=== PATIENT | female | born 1945 | race Caucasian/White ===

== ENCOUNTER 2017-05-22 21:05 | Emergency (ER) | payer MEDICARE, OTHER ==
[2017-05-22] MEDS ORDERED: TRANEXAMIC ACID 1,000 MG/10 ML VIAL NAS STA (21:52)
[2017-05-22] MEDS ORDERED: OXYMETAZOLINE NASAL SPRAY NAS STA (21:52)
[2017-05-22] MEDS ORDERED: BACITRACIN OINT TOP STA (22:25)
--- NOTE | 2017-05-22 22:45 | ED Physician Documentation ---
PD HPI HEENT - Stated complaint Stated Complaint: NOSE BLEED X2 HRS - Chief complaint Chief Complaint: Heent - History obtained from History obtained from: Patient - History of Present Illness Timing - onset: How many hours ago (2), Today Timing - details: Abrupt onset Location: Nose Similar symptoms before: Has not had sx before Recently seen: Not recently seen - Additional information Additional information: Patient is a 71 year old female with no significant past medical history who is presenting to the emergency department for two hours of epistaxis. patient states that she normally takes an aspirin everyday but due to her cough she has not been taking it. Review of Systems Constitutional: denies: Fever, Chills Eyes: reports: Reviewed and negative Ears: reports: Reviewed and negative Nose: reports: Epistaxis Throat: reports: Reviewed and negative Cardiac: denies: Chest pain / pressure Respiratory: reports: Cough, Wheezing GI: denies: Nausea, Vomiting : reports: Reviewed and negative Skin: reports: Reviewed and negative Musculoskeletal: reports: Reviewed and negative Neurologic: denies: Generalized weakness, Near syncope, Syncope Psychiatric: reports: Anxiety Immunocompromised: denies: Immunocompromised PD PAST MEDICAL HISTORY - Past Medical History GI: GERD : Other HEENT: Glaucoma - Past Surgical History Past Surgical History: Yes - Present Medications Home Medications: Ambulatory Orders Medication Instructions Recorded Confirmed Aspirin [Aspir 81] 1 tab PO DAILY 09/03/14 09/03/14 Latanoprost 0.005% Ophth Drops 09/03/14 09/03/14 [Xalatan Ophth Drops] Omeprazole 20 mg PO DAILY 09/03/14 09/03/14 - Allergies Allergies/Adverse Reactions: Allergies Allergy/AdvReac Type Severity Reaction Status Date / Time No Known Drug Allergies Allergy Verified 05/22/17 21:13 - Social History Does the pt smoke?: No Smoking Status: Never smoker Does the pt drink ETOH?: Yes Does the pt have substance abuse?: No - Immunizations Immunizations are current?: Yes - POLST Patient has POLST: Yes PD ED PE NORMAL - Vitals Vital signs reviewed: Yes - General General: Alert and oriented X 3, No acute distress - Cardiac Cardiac: RRR, No murmur - Derm Derm: Normal color, No rash - Extremities Extremities: No deformity - Neuro Neuro: Alert and oriented X 3, No motor deficit, No sensory deficit, Normal speech PD ED PE EXPANDED - General General: Alert, Anxious - HEENT HEENT: Left nares epistaxis (anterior mild bleeding appreciated), Other (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 Patient's nares were cleaned out and afrin was applied, as well as pressure. Patient's nose bleed resolved. some bacitracin was also placed in the nares. Patient required no further work up and was stable for discharge with outpatient follow up. Departure - Departure Disposition: 01 Home, Self Care Clinical Impression: Epistaxis not due to trauma Condition: Good Instructions: ED Nosebleed Follow-Up: Richa Hernandez PA-C [Primary Care Provider] - As Needed Comments: Your symptoms today are being caused by an anterior nose bleed. It has stopped now, but it may start again. If it does start again you can use the afrin and apply pressure. You may return to the emergency department at any time if necessary for new, worsening or uncontrollable symptoms.
[2017-05-22 22:56] VITALS: BP 129/77
== END 2017-05-22 22:56 | disposition home or self-care (01) ==
LOC: ED 21:05
DX: R04.0 Epistaxis (principal)
CPT/HCPCS: 99282; 99283; A9270

== ENCOUNTER 2017-08-19 11:48 | Outpatient (CLI) | payer MEDICARE, OTHER ==
[2017-08-19] MEDS ORDERED: IOPAMIDOL-300 50 ML VIAL ONE (12:18)
[2017-08-19] MEDS ORDERED: IOPAMIDOL-300 100 ML VIAL ONE (12:18)
[2017-08-19 12:34] LABS: BASOPHILS # (AUTO) 0.1 10^3/uL (0.0-0.1); BASOPHILS % (AUTO) 0.8 %; EOSINOPHILS # (AUTO) 0.5 10^3/uL (0.0-0.7); EOSINOPHILS % (AUTO) 7.8 %; HGB - HEMOGLOBIN 13.6 g/dL (12.0-16.0); LYMPHOCYTES # (AUTO) 1.9 10^3/uL (1.5-3.5); MONOCYTES # (AUTO) 0.5 10^3/uL (0.0-1.0); NEUTROPHILS # (AUTO) 3.7 10^3/uL (1.5-6.6); WHITE BLOOD COUNT 6.7 x10^3/uL (4.8-10.8)
[2017-08-19 12:44] LABS: LYMPHOCYTES % (AUTO) 27.8 %; MEAN CORPUSCULAR HEMOGLOBIN 30.6 pg (27.0-31.0); MEAN CORPUSCULAR HGB CONC 33.3 g/dL (32.0-36.0); MEAN PLATELET VOLUME 8.4 fL (7.9-10.8); MONOCYTES % (AUTO) 8.2 %; NEUTROPHILS % (AUTO) 55.4 %; PLT - PLATELET COUNT 411 10^3/uL (130-450); RED BLOOD COUNT 4.43 10^6/uL (4.20-5.40); RED CELL DISTRIBUTION WIDTH 14.4 % (12.0-15.0)
[2017-08-19 12:52] LABS: ALBUMIN 3.2 g/dL (3.2-5.5); ALBUMIN/GLOBULIN RATIO 0.8 (1.0-2.2); BILIRUBIN,TOTAL 0.5 mg/dL (0.2-1.0); CALCIUM 9.2 mg/dL (8.5-10.3); CREATININE 0.6 mg/dL (0.4-1.0); CRP - C-REACTIVE PROTEIN 11.1 mg/dL (0-1.0); TOTAL PROTEIN 7.1 g/dL (6.7-8.2)
[2017-08-19] MEDS ORDERED: IOPAMIDOL-300 50 ML VIAL PO ONE (13:35)
[2017-08-19] MEDS ORDERED: IOPAMIDOL-300 100 ML VIAL IVP ONE (13:35)
--- NOTE | 2017-08-19 13:48 | CT Report ---
CT ABDOMEN AND PELVIS WITH CONTRAST: 08/19/2017 CLINICAL INDICATION: Abdominal pain. TECHNIQUE: Axial CT images of the abdomen and pelvis were obtained with 100 mL Isovue 300 intravenously as well as oral contrast. COMPARISON: No previous CT is available for comparison. FINDINGS: Limited evaluation of the lung bases demonstrates minimal atelectasis. ABDOMEN: An incidental calcification is noted at the dome of the liver. The spleen, pancreas, left kidney and adrenal glands appear unremarkable. The right kidney demonstrates a small focus of cortical scarring and dystrophic calcification, likely related to previous infection. The gallbladder is not dilated. There is an abnormal fluid collection, with surrounding inflammation, just medial to the cecum, measuring 5.3 x 4.3 x 3.6 cm, compatible with an appendiceal abscess. No normal appendix is appreciated in the region. No free intraperitoneal gas is identified. PELVIS: Colonic diverticula are present, without CT evidence of diverticulitis. The pelvic organs appear unremarkable. No pelvic adenopathy or free fluid is appreciated. Osseous structures demonstrate degenerative changes and levoscoliosis of the lumbar spine. IMPRESSION: ABNORMAL INFLAMMATORY COLLECTION MEDIAL TO THE CECUM, WITHOUT A NORMAL APPENDIX VISUALIZED, COMPATIBLE WITH APPENDICEAL ABSCESS. NO EVIDENCE OF FREE AIR. CRITICAL RESULT: Results called to Richa Hernandez PA-C on 08/19/[address] DOSE REDUCTION STATEMENT In accordance with CT protocol optimization, one or more of the following dose reduction techniques were utilized for this exam: automated exposure control, adjustment of mA and/or KV based on patient size, or use of iterative reconstructive technique. TD: 08/19/2017 13:47
[2017-08-19] MEDS ORDERED: BUPIVACAINE 0.25%-EPI 1:200000 PF 30 ML VIAL ONE (16:34)
[2017-08-19] MEDS ORDERED: BUPIVACAINE 0.5%-EPI 1:200000 PF 30 ML VIAL ONE (17:34)
[2017-08-19] MEDS ORDERED: MORPHINE PCA 50 MG IV ONE (18:21)
== END 2017-08-19 11:49 | disposition home or self-care (01) ==
LOC: LAB 11:48
PROVIDERS: ATTEND Physician Assistant Medical
DX: R93.5 Abnormal findings on diagnostic imaging of other abdominal regions, including retroperitoneum (principal)
CPT/HCPCS: 36415; 74177; 80053; 83690; 85025; 85651; 86140; Q9967

== ENCOUNTER 2017-08-19 13:34 | Inpatient (IN) | payer MEDICARE, OTHER ==
--- NOTE | 2017-08-19 13:47 | ED Physician Documentation ---
PD HPI ABD PAIN - Stated complaint Stated Complaint: RLQ PX - History obtained from History obtained from: Patient - History of Present Illness Timing - onset: How many weeks ago (2) Timing - duration: Weeks (2) Timing - details: Gradual onset, Waxing and waning Pain level max: 10 Pain level now: 5 Quality: Cramping, Aching, Pain Location: All over / everywhere Improved by: Laying still Worsened by: Moving - Additional information Additional information: Patient is a 71-year-old female who presents to the emergency department with right-sided abdominal pain for the past 2 weeks. Has had some nausea and vomiting as well as some diarrhea. Also has had abdominal cramping. No fevers. Was seen by her primary care provider today and had outpatient laboratory testing done as well as an outpatient CT which revealed a possible appendiceal abscess. Sent here for evaluation. Review of Systems Ten Systems: 10 systems reviewed and negative Constitutional: denies: Fever, Chills Ears: denies: Ear pain Nose: denies: Rhinorrhea / runny nose, Congestion Throat: denies: Sore throat Cardiac: denies: Chest pain / pressure Respiratory: denies: Cough, Wheezing GI: denies: Nausea, Vomiting, Diarrhea Skin: denies: Rash Musculoskeletal: denies: Neck pain, Back pain Neurologic: denies: Headache PD PAST MEDICAL HISTORY - Past Medical History Past Medical History: Yes GI: GERD : Other HEENT: Glaucoma - Past Surgical History Past Surgical History: Yes - Present Medications Home Medications: Ambulatory Orders Medication Instructions Recorded Confirmed Aspirin [Aspir 81] 1 tab PO DAILY 09/03/14 09/03/14 Latanoprost 0.005% Ophth Drops 09/03/14 09/03/14 [Xalatan Ophth Drops] Omeprazole 20 mg PO DAILY 09/03/14 09/03/14 - Allergies Allergies/Adverse Reactions: Allergies Allergy/AdvReac Type Severity Reaction Status Date / Time No Known Drug Allergies Allergy Verified 08/19/17 13:51 - Social History Does the pt smoke?: No Smoking Status: Never smoker Does the pt drink ETOH?: Yes Does the pt have substance abuse?: No - Immunizations Immunizations are current?: Yes - POLST Patient has POLST: Yes PD ED PE NORMAL - Vitals Vital signs reviewed: Yes - General General: Alert and oriented X 3, No acute distress - HEENT HEENT: Moist mucous membranes - Neck Neck: Supple, no meningeal sign - Cardiac Cardiac: RRR - Respiratory Respiratory: No respiratory distress, Clear bilaterally - Abdomen Abdomen: Soft, Non tender, Other (Mild diffuse tenderness to palpation without peritoneal signs) - Back Back: No CVA TTP, No spinal TTP - Derm Derm: Warm and dry - Neuro Neuro: Alert and oriented X 3 - Psych Psych: Normal mood, Normal affect Results - Vitals Vitals: Vital Signs - 24 hr 08/19/17 08/19/17 13:47 17:57 Temperature 36.0 C L Heart Rate 73 Respiratory 18 Rate Blood Pressure 130/56 L O2 Saturation 100 100 Oxygen O2 Source Room air - Labs Labs: Microbiology 08/19/17 17:25 Body Fluid Culture - Preliminary Peritoneal Fluid Laboratory Tests 08/19/17 13:45 Urine Color YELLOW Urine Clarity CLEAR Urine pH 6.0 Ur Specific Campo <=1.005 Urine Protein NEGATIVE Urine Glucose (UA) NEGATIVE Urine Ketones NEGATIVE Urine Occult Blood NEGATIVE Urine Nitrite NEGATIVE Urine Bilirubin NEGATIVE Urine Urobilinogen 0.2 (NORMAL) Ur Leukocyte Esterase NEGATIVE Ur Microscopic Review NOT INDICATED Urine Culture Comments NOT INDICATED PD MEDICAL DECISION MAKING - ED course Complexity details: reviewed old records, reviewed results, re-evaluated patient , considered differential, d/w patient, d/w family, d/w data virtualization consultant ED course: Patient is a 71-year-old female who presents to the emergency department with abdominal pain. Outpatient CT revealed an abnormal inflammatory collection medial to the cecum without a normal appendix visualized, compatible with appendiceal abscess. No evidence of free air. The measurement is 5.3 x 4.3 x 3.6 cm. Her outpatient laboratory values were essentially normal. White blood cell count of 6.7. Given IV fluids as well as Zosyn and Flagyl here. Surgery consulted, Dr. Lizandro Khan at 1415. Dr. Khan came and evaluated the patient, feels that she would be better served by interventional radiology performing percutaneous drainage. I then consulted [facility] in [place] for transfer. Interventional radiology reviewed the images and do not feel that there is a window to place a percutaneous drainage. They recommend surgery. I reconsulted Dr. Khan at 1600 and he will come and reevaluate the patient. Dr. Khan will take the patient to the OR. Departure - Departure Disposition: ED Transfer to [facility] Clinical Impression: Acute appendicitis with appendiceal abscess Condition: Stable Discharge Date/Time: 08/19/17 16:45
[2017-08-19] MEDS ORDERED: PIPERACILLIN/TAZOBACTAM 3.375 GM in SODIUM CHLORIDE 0.9% MINIBAG 100 ML IV STA (13:52)
[2017-08-19] MEDS ORDERED: metroNIDAZOLE 500 MG/100 ML 500 MG/100 ML BAG IV ONE (13:52)
[2017-08-19] MEDS: SODIUM CHLORIDE 0.9% 1,000 ML IV ONE ×2 (14:04→19:02)
[2017-08-19] MEDS ORDERED: MORPHINE 2 MG/ML SYRINGE IVP STA (14:06)
[2017-08-19 14:13] LABS: BILIRUBIN,URINE NEGATIVE (NEGATIVE); GLUCOSE, URINE (UA) NEGATIVE (NEGATIVE); KETONES,URINE (UA) NEGATIVE (NEGATIVE); LEUKOCYTE ESTERASE, URINE NEGATIVE (NEGATIVE); NITRITE,URINE NEGATIVE (NEGATIVE); OCCULT BLOOD,URINE NEGATIVE (NEGATIVE); PROTEIN,URINE NEGATIVE (NEGATIVE); UROBILINOGEN,URINE 0.2 (NORMAL) E.U./dL (NORMAL)
[2017-08-19 14:14] LABS: CLARITY,URINE CLEAR (CLEAR)
--- NOTE | 2017-08-19 16:24 | CONSULTATION NOTE ---
Referring Provider Name of Referring Provider:: Dr. Olivas Consult Date: 08/19/17 Chief Complaint - Chief Complaint Chief Complaint: RLQ abdominal pain History of Present Illness - Admitted From Admitted From:: ER - History Obtained From Records Reviewed: yes History obtained from: pt Exam Limitations: none - History of Present Illness HPI Comment/Other: 71 yo female with 2 week hx of crampy periumbilical pain associated with a constant RLQ pressure type of pain. Sx began after several days of N/V and nonbloody diarrhea thought due to food poisoning. She has noted chills but no fever. The symptoms have worsened over the past few day with exacerbation following meals. She has switched to a liquid diet with some improvement. She has been passing flatus and small amount of stool. No melena, BRBPR; no prior simlar sx. She has never had a colonoscopy. Neg FH GI tumors. She saw her PCP who ordered labs and an ABD/Pelvic CT scan, which showed a 5 x 4 x 4 cm complex fluid collection in the RLQ medial to the cecum consistent with an abscess. The appendix could not be visualized. Diverticulosis was also noted. Surgical consultation was requested. She has noted a 10# wt loss since onset of sx. History - Past Medical History Cardiovascular: reports: None Respiratory: reports: None Neuro: reports: None Endocrine/Autoimmune: reports: None GI: reports: GERD (sx well controlled with PPI therapy) POSTPARTUM RN: reports: None : reports: None, Other HEENT: reports: Glaucoma Psych: reports: None Musculoskeletal: reports: None Derm: reports: None MRSA Hx?: No - Family & Social History Family History Comment/Other: Neg for GI tumors Living arrangement: At home Living Situation: With spouse/s.o. - Substance History Use: Uses substance without health or social issues: Alcohol (1-2 drinks/night) Abuse: Recurrent use of substance despite neg consequences: NONE Dependence: Experiences withdrawal or developed tolerances: NONE - POLST Patient has POLST: Yes POLST Status: Full Code Meds/Allgy - Home Medications Home Medications: Ambulatory Orders Medication Instructions Recorded Confirmed Aspirin [Aspir 81] 1 tab PO DAILY 09/03/14 09/03/14 Latanoprost 0.005% Ophth Drops 09/03/14 09/03/14 [Xalatan Ophth Drops] Omeprazole 20 mg PO DAILY 09/03/14 09/03/14 - Allergies Allergies/Adverse Reactions: Allergies Allergy/AdvReac Type Severity Reaction Status Date / Time No Known Drug Allergies Allergy Verified 08/19/17 13:51 Review of Systems - Constitutional Constitutional: reports: Chills, Poor appetite, Weight loss - Cardiovascular Cariovascular: denies: Irregular heart rate, Palpitations, Chest pain, Edema, Lightheadedness, Syncope, Exertional dyspnea - Respiratory Respiratory: denies: Cough, Sputum production, Wheezing, SOB at rest - Gastrointestinal Gastrointestinal: reports: Abdominal pain, Abdominal distention, Constipation ( chronic, controlled with MOM prn), Diarrhea, Nausea, Vomiting, Reflux/ heartburn. denies: Rectal bleeding, Black stools, Bloody stools, Jason blood emesis, Coffee grounds emesis - Genitourinary Genitourinary: reports: Flank pain (mild right sided). denies: Dysuria, Frequency, Urgency, Hematuria - Musculoskeletal Musculoskeletal: denies: Muscle aches, Joint pain - Hematologic/Lymphatic Hematologic/Lymphatic: denies: Bruising, Blood clots, Bleeding tendencies - All Other Systems All Other Systems: reports: Reviewed and negative Exam - Vital Signs Reviewed Vital Signs: Yes Vital Signs: Vital Signs x48h Temp Pulse Resp BP Pulse Ox 08/19/17 13:47 36.0 C L 73 18 130/56 L 100 - Physical Exam General Appearance: positive: Alert, Moderate distress Eyes Bilateral: positive: Normal inspection, PERRL, EOMI, Conjunctivae nml, No scleral icterus ENT: positive: ENT inspection nml, No signs of dehydration. negative: Pharynx nml, Pharyngeal erythema Neck: positive: Nml inspection, Thyroid nml, No JVD. negative: Thyromegaly, Lymphadenopathy (R), Lymphadenopathy (L) Respiratory: positive: Chest non-tender, No respiratory distress, Breath sounds nml. negative: Wheezes, Rales, Rhonchi Cardiovascular: positive: Regular rate & rhythm, No murmur, No gallop Abdomen: positive: No organomegaly, Tenderness (RLQ with guarding/rebound; neg Rovsing's, psoas, and obturator signs; no generalized peritoneal signs), Guarding, Rebound, Abnml bowel sounds (hyperactive). negative: No distention ( mild distention), Hepatomegaly, Splenomegaly, Mass Back: positive: CVA tenderness (R) (mild) Skin: positive: Color nml, No rash, Warm, Dry. negative: Cyanosis, Diaphoresis , Pallor, Skin rash Extremities: positive: Non-tender, Nml appearance, No pedal edema. negative: Calf tenderness Neurologic/Psychiatric: positive: Oriented x3, Motor nml, Sensation nml, Mood/ affect nml Conclusion/Plan - Diagnosis Diagnosis: Acute abdomen with intraabdominal abscess; likely due to perforated appendicitis, less likely right sided diverticulitis, neoplasm. - Plan Plan: Initial recommendation was transfer to facility for IR percutaneous drainage, but radiologists at [facility] were contacted and they felt that this abscess was not amenable to percutaneous drainage due to overlying bowel; surgical therapy was recommended; surgeon, Dr. Pulido, at [facility] recommended same and suggested it be done here if possible. Discussed exploratory laparotomy, drainage of abscess, possible appendectomy, possible bowel resection with pt and consent obtained. The surgery will be performed later today. Broad spectrum antibiotics have been initiated. - Lab Results Lab results reviewed: Yes Other Lab Results: WBC nl; ESR and CRP elevated; UA negative; Chemistries OK. - Diagnostic Imaging Results Diagnostic Imaging Results: positive: Final report reviewed, Read independently Diagnostic Imaging Results Comments: See HPI
[2017-08-19] MEDS ORDERED: NEOSTIGMINE 1 MG/1 ML 10 ML MDV IVP ONE (17:30)
[2017-08-19] MEDS ORDERED: ROCURONIUM 50 MG/5 ML VIAL IVP ONE (17:30)
[2017-08-19] MEDS ORDERED: DEXAMETHASONE 4 MG/ML VIAL IVP ONE (17:30)
[2017-08-19] MEDS ORDERED: ONDANSETRON 4 MG/2 ML VIAL IVP ONE (17:30)
[2017-08-19] MEDS ORDERED: ePHEDrine 50 MG/ML VIAL IVP ONE (17:30)
[2017-08-19] MEDS ORDERED: PROPOFOL 200 MG/20 ML VIAL IVP ONE (17:30)
[2017-08-19] MEDS ORDERED: SUCCINYLCHOLINE 200 MG/10 ML VIAL IVP ONE (17:30)
[2017-08-19] MEDS ORDERED: fentaNYL 250 MCG/5 ML VIAL IVP ONE (17:30)
[2017-08-19] MEDS ORDERED: KETOROLAC 30 MG/ML VIAL IVP ONE (17:30)
[2017-08-19] MEDS ORDERED: GLYCOPYRROLATE 1 MG/5 ML VIAL IVP ONE (17:30)
[2017-08-19] MEDS ORDERED: BUPIVACAINE 0.5%-EPI 1:200000 PF 30 ML VIAL SUBQ ONE (17:31)
[2017-08-19] MEDS ORDERED: LACTATED RINGERS 1,000 ML IV ONE ×2 (17:32)
[2017-08-19] MEDS ORDERED: ceFAZolin 1 GM VIAL IR ONE (17:40)
[2017-08-19] MEDS ORDERED: ONDANSETRON 4 MG/2 ML VIAL IVP PRN (17:59)
[2017-08-19] MEDS ORDERED: ACETAMINOPHEN 1,000 MG/100 ML 100 ML IV ONE (18:11)
[2017-08-19] MEDS ORDERED: MORPHINE PCA 50 MG IV PRN (18:15)
[2017-08-19] MEDS ORDERED: HYDROmorphone 0.5 MG/0.5 ML SYRINGE ONE (18:19)
[2017-08-19] MEDS: ACETAMINOPHEN 1,000 MG/100 ML 100 ML IV SCH (19:03)
[2017-08-19] MEDS: PIPERACILLIN/TAZOBACTAM 3.375 GM in SODIUM CHLORIDE 0.9% MINIBAG 100 ML IV SCH (19:25)
[2017-08-19] MEDS: LACTATED RINGERS 1,000 ML IV SCH (19:50)
[2017-08-19] MEDS: PROCHLORPERAZINE 10 MG/2 ML VIAL IVP PRN (20:20)
--- NOTE | 2017-08-19 21:41 | OPERATIVE REPORT ---
DATE OF SERVICE: 08/19/2017 Physician: Lizandro Khan MD PREOPERATIVE DIAGNOSIS: Acute abdomen secondary to intra-abdominal abscess, thought secondary to perforated appendicitis. POSTOPERATIVE DIAGNOSIS: Acute abdomen secondary to intra-abdominal abscess, thought secondary to perforated appendicitis. NAME OF PROCEDURE: Exploratory laparotomy and drainage of intra-abdominal abscess. SURGEON: Lizandro Khan MD ANESTHESIA: General endotracheal. ESTIMATED BLOOD LOSS: Minimal. DRAINS: A #10 flat Mazin-Cifuentes in the abscess cavity. COMPLICATIONS: None. FINDINGS: Exploratory laparotomy revealed an inflammatory mass in the right mid paracolic gutter located posterior to the mid ascending colon approximately 6-7 cm in diameter. The overlying cecum, terminal ileum, remainder of small bowel appeared normal. The left colon was notable for marked diverticular change. Uterus, tubes, and ovaries were normal for age. Liver, stomach, gallbladder appeared normal. Following exploration of the retroperitoneal space behind the right colon, an abscess cavity was entered and purulent material that was foul smelling was drained. Samples of which were sent for Gram stain and culture, aerobic and anaerobic. The appendix could not be identified and was presumed to be destroyed within the abscess and located somewhere within the abscess cavity but could not be identified. There were no gross findings suspicious for neoplasm. There was no free fluid. The omentum appeared normal. INDICATIONS: Patient is a 71-year-old woman with a 2-week history of right lower quadrant abdominal pain. Evaluation included a CT scan of the abdomen and pelvis showing a complex fluid collection medial to the cecum and no visible appendix. Findings thought to represent a large appendiceal abscess. Consultation with Interventional Radiology regarding drainage percutaneously was obtained, and apparently this abscess was not felt amenable to percutaneous drainage. Therefore, patient advised to undergo exploratory laparotomy and open drainage with appendectomy as appropriate. TECHNIQUE: After informed consent, patient was taken to the operating room where she was placed under general endotracheal anesthesia. Preoperative preparation included application of sequential calf compression boots. She had previously been administered a therapeutic dose of Zosyn and metronidazole. Her abdomen was prepared with ChloraPrep solution and draped in usual sterile fashion. Lama catheter and orogastric catheters were inserted. A lower midline incision was made and extended just above the umbilicus. Hemostasis achieved with electrocautery. Incision was carried down through the layers of the abdominal wall until the peritoneum was identified and entered sharply. The abdomen was explored with findings noted above. The right colon was mobilized and the white line of Toldt was incised, exposing the retroperitoneum behind the cecum where the abscess cavity was encountered, entered and was drained. Samples were sent for Gram stain and culture. Search was made for the appendix but could not be identified. It was presumed to be in the wall of the abscess cavity at some point or having been destroyed. After hemostasis had been assured, the abscess cavity and abdominal cavity were copiously irrigated with saline solution containing a gram of cefotetan per liter, following which, a #10 flat Mazin-Cifuentes drain was placed via a stab wound in the right lower quadrant and placed into the abscess cavity. The drain was secured to the skin with a 3-0 nylon suture and connected to bulb suction. The incision was then closed in layers, using continuous 0 Vicryl to reapproximate the peritoneum and posterior rectus sheath below the umbilicus, followed by continuous 0 PDS to reapproximate the midline fascia above the umbilicus and the anterior fascia below. The wound was irrigated with antibiotic solution , following which the skin was loosely closed with jeanmarie and saline wet-to-dry dressings were applied between the jeanmarie. This was followed by dry sterile dressing, and 30 mL of 0.5% Marcaine with epinephrine was infiltrated in the incision to assist in postoperative analgesia. Dry sterile dressings were applied. Anesthesia was terminated. The Lama and orogastric tube were removed. Patient was transferred to the recovery room in satisfactory condition. Sponge and needle counts were correct x2. There were no specimens for pathology. TD: 08/19/2017 21:41 [id number]
[2017-08-19] MEDS ORDERED: SODIUM CHLORIDE 0.9% 500 ML IV SCH (21:43)
[2017-08-19] MEDS ORDERED: SODIUM CHLORIDE 0.9% 1,000 ML IV ONE (21:54)
[2017-08-19] MEDS ORDERED: SODIUM CHLORIDE 0.9% 500 ML IV ONE (22:59)
[2017-08-20] MEDS: ACETAMINOPHEN 1,000 MG/100 ML 100 ML IV SCH ×4 (01:54→18:28)
[2017-08-20] MEDS: PIPERACILLIN/TAZOBACTAM 3.375 GM in SODIUM CHLORIDE 0.9% MINIBAG 100 ML IV SCH ×4 (01:55→18:51)
[2017-08-20] MEDS: KETOROLAC 15 MG/ML VIAL IVP SCH ×4 (01:55→18:37)
[2017-08-20] MEDS: SODIUM CHLORIDE FLUSH 0.9% 10 ML SYRINGE IVP SCH ×3 (01:55→18:36)
[2017-08-20 04:36] LABS: BASOPHILS % (AUTO) 0.2 %; HGB - HEMOGLOBIN 12.9 g/dL (12.0-16.0); LYMPHOCYTES # (AUTO) 0.9 10^3/uL (1.5-3.5); LYMPHOCYTES % (AUTO) 6.1 %; MEAN CORPUSCULAR HEMOGLOBIN 29.4 pg (27.0-31.0); MEAN CORPUSCULAR HGB CONC 31.4 g/dL (32.0-36.0); MEAN CORPUSCULAR VOLUME 93.8 fL (81.0-99.0); MEAN PLATELET VOLUME 8.5 fL (7.9-10.8); MONOCYTES # (AUTO) 0.6 10^3/uL (0.0-1.0); MONOCYTES % (AUTO) 3.8 %; NEUTROPHILS # (AUTO) 13.8 10^3/uL (1.5-6.6); NEUTROPHILS % (AUTO) 89.9 %; PLT - PLATELET COUNT 402 10^3/uL (130-450); RED BLOOD COUNT 4.38 10^6/uL (4.20-5.40); RED CELL DISTRIBUTION WIDTH 14.8 % (12.0-15.0); WHITE BLOOD COUNT 15.4 x10^3/uL (4.8-10.8)
[2017-08-20 04:50] LABS: ALBUMIN 2.6 g/dL (3.2-5.5); ALBUMIN/GLOBULIN RATIO 0.8 (1.0-2.2); BILIRUBIN,TOTAL 0.6 mg/dL (0.2-1.0); CREATININE 0.6 mg/dL (0.4-1.0); TOTAL PROTEIN 5.8 g/dL (6.7-8.2)
[2017-08-20] MEDS: LACTATED RINGERS 1,000 ML IV SCH ×2 (06:50→18:33)
[2017-08-20] MEDS: SODIUM CHLORIDE FLUSH 0.9% 10 ML SYRINGE IVP PRN ×4 (06:56→19:12)
[2017-08-20] MEDS ORDERED: PANTOPRAZOLE 40 MG TABLET PO SCH (07:00)
[2017-08-20] MEDS: ENOXAPARIN 40 MG/0.4 ML SYRINGE SUBQ SCH (08:19)
[2017-08-20] MEDS ORDERED: LATANOPROST 0.005% EACHEYE SCH (09:00)
[2017-08-20] MEDS: RESTASIS EACHEYE SCH ×2 (09:40→21:38)
[2017-08-20] MEDS: COMBIGAN EACHEYE SCH ×2 (09:40→21:32)
[2017-08-20] MEDS: PROCHLORPERAZINE 10 MG/2 ML VIAL IVP PRN (11:20)
--- NOTE | 2017-08-20 16:46 | PROVIDER PROGRESS NOTE ---
Subjective - General Admit Date: 08/19/17 Procedure Date: 08/19/17 Post Op Days: 1 Procedure Performed: Ex lap, drainage of retroperitoneal appendiceal abscess - Review of Systems Wound/Incisions: positive: Dressing dry and intact, No drainage Drain Type: J/P Drain Output Description: serosanguinous Approximate mls Output: 80 cc/8 hours General: positive: No symptoms Pulmonary: positive: No symptoms Cardiovascular: positive: No symptoms Gastrointestinal: positive: Nausea, Vomiting, Abdominal pain Genitourinary: positive: No symptoms Musculoskeletal: positive: No symptoms Skin: positive: No symptoms Psychiatric: positive: No symptoms Objective - Patient Data Reviewed Vital Signs: Yes Vital Signs: Vital Signs x48h Temp Pulse Resp BP Pulse Ox 08/20/17 15:38 36.8 C 70 12 122/47 L 96 08/20/17 10:00 12 Weight: Weight 08/18/17 08/19/17 08/20/17 23:59 23:59 23:59 Weight (kg) 68.946 kg Intake & Output: Intake and Output Totals x24h 08/18/17 08/19/17 08/20/17 23:59 23:59 23:59 Intake Total 2367.5 1875 Output Total 110 510 Balance 2257.5 1365 - Lab Results Lab Results: 08/20/17 04:02 08/20/17 04:02 Other Lab Results: Lab Results x24hrs 08/20/17 08/20/17 Range/Units 04:02 04:02 WBC 15.4 H (4.8-10.8) x10^3/uL RBC 4.38 (4.20-5.40) 10^6/uL Hgb 12.9 (12.0-16.0) g/dL Hct 41.1 (37.0-47.0) % MCV 93.8 (81.0-99.0) fL MCH 29.4 (27.0-31.0) pg MCHC 31.4 L (32.0-36.0) g/dL RDW 14.8 (12.0-15.0) % Plt Count 402 (130-450) 10^3/uL MPV 8.5 (7.9-10.8) fL Neut # 13.8 H (1.5-6.6) 10^3/uL Lymph # 0.9 L (1.5-3.5) 10^3/uL [place] # 0.6 (0.0-1.0) 10^3/uL Eos # 0.0 (0.0-0.7) 10^3/uL Baso # 0.0 (0.0-0.1) 10^3/uL Absolute Nucleated RBC 0.01 x10^3/uL Nucleated RBC % 0.0 /100WBC Sodium 135 (135-145) mmol/L Potassium 4.4 (3.5-5.0) mmol/L Chloride 105 (101-111) mmol/L Carbon Dioxide 23 (21-32) mmol/L Anion Gap 7.0 (6-13) BUN 14 (6-20) mg/dL Creatinine 0.6 (0.4-1.0) mg/dL Estimated GFR (MDRD) 98 (>89) Glucose 140 H (70-100) mg/dL Calcium 8.0 L (8.5-10.3) mg/dL Total Bilirubin 0.6 (0.2-1.0) mg/dL AST 24 (10-42) IU/L ALT 29 (10-60) IU/L Alkaline Phosphatase 60 (42-121) IU/L Total Protein 5.8 L (6.7-8.2) g/dL Albumin 2.6 L (3.2-5.5) g/dL Globulin 3.2 (2.1-4.2) g/dL Albumin/Globulin Ratio 0.8 L (1.0-2.2) - Current Medications Current Medications: Current Medications Generic Name Dose Route Start Last Admin Trade Name Norbertq PRN Reason Stop Dose Admin Enoxaparin Sodium 40 mg 08/20/17 08:00 08/20/17 08:19 Lovenox SUBQ 40 mg DAILY TESSA Administration Lactated Ringer's 1,000 mls @ 100 mls/hr 08/19/17 18:00 08/20/17 06:50 Lr IV 100 mls/hr .Q10H TESSA Administration Acetaminophen 100 mls @ 400 mls/hr 08/19/17 18:00 08/20/17 13:25 Ofirmev IV Infused Q6H TESSA Infusion Piperacillin Sod/Tazobactam 100 mls @ 200 mls/hr 08/19/17 18:00 08/20/17 13: 40 Sod 3.375 gm/ Sodium Chloride IV Infused Q6HR TESSA Infusion Ketorolac Tromethamine 15 mg 08/19/17 23:55 08/20/17 12:40 Toradol Inj IVP 08/24/17 23:54 15 mg Q6H TESSA Administration Morphine Sulfate/Sodium Chloride 0 mg 08/19/17 18:15 08/19/17 19:11 Morphine Industrial Rehabilitation Consultant (Use Industrial Rehabilitation Consultant Order Set) IV 50 mg J[employer] LEAD ENGINEER PRN Administration PAIN Protocol Ondansetron HCl 4 mg 08/19/17 17:59 08/19/17 19:21 Zofran Inj IVP 4 mg Q6H PRN Administration Nausea / Vomiting Pantoprazole Sodium 40 mg 08/20/17 07:00 08/20/17 06:50 Protonix PO 40 mg QDAC TESSA Administration Combigan 0.2%/0.5% 1 each 08/20/17 09:00 08/20/17 09:40 EACHEYE 1 each BID TESSA Administration Restasis 0.5% 1 each 08/20/17 09:00 08/20/17 09:40 EACHEYE 1 each BID TESSA Administration Prochlorperazine Edisylate 10 mg 08/19/17 20:10 08/20/17 11:20 Compazine Inj IVP 10 mg Q4HR PRN Administration Nausea / Vomiting Sodium Chloride 10 ml 08/20/17 01:00 08/20/17 08:11 Normal Saline Flush 0.9% IVP 10 ml 0100,0900,1700 TESSA Administration Sodium Chloride 10 ml 08/19/17 17:59 08/20/17 11:20 Normal Saline Flush 0.9% IVP 10 ml PRN PRN Administration NEEDED PER PROVIDER ORDERS - Physical Exam Wound/Incisions: positive: Dressing dry and intact, No drainage General Appearance: positive: No acute distress Eyes Bilateral: positive: Normal inspection, Conjunctivae nml, No scleral icterus ENT: positive: Pharynx nml, No signs of dehydration Neck: positive: No JVD Respiratory: positive: Chest non-tender, No respiratory distress, Breath sounds nml Cardiovascular: positive: Regular rate & rhythm, No murmur, No gallop Abdomen: positive: Tenderness (incisional; less tender in RLQ than preop), Abnml bowel sounds (hypoactive). negative: Guarding Skin: positive: Color nml, No rash, Warm, Dry. negative: Cyanosis Extremities: positive: No pedal edema. negative: Luana's sign/cords Neurologic/Psychiatric: positive: Oriented x3 Impression/Plan - Problem List Problem List: PO Day 1 s/p ex lap and drainage of appendiceal abscess; doing well overall. Some PONV persists, but is improving. Plan: OOB, pulmonary toilet, ow continue present management.
[2017-08-20] MEDS: PANTOPRAZOLE 40 MG VIAL IVP SCH (19:12)
[2017-08-20] MEDS: LATANOPROST 0.005% EACHEYE SCH (21:45)
[2017-08-21] MEDS: KETOROLAC 15 MG/ML VIAL IVP SCH ×4 (00:15→17:38)
[2017-08-21] MEDS: ACETAMINOPHEN 1,000 MG/100 ML 100 ML IV SCH ×4 (00:20→18:04)
[2017-08-21] MEDS: SODIUM CHLORIDE FLUSH 0.9% 10 ML SYRINGE IVP SCH ×3 (00:34→11:50)
[2017-08-21] MEDS: PIPERACILLIN/TAZOBACTAM 3.375 GM in SODIUM CHLORIDE 0.9% MINIBAG 100 ML IV SCH ×4 (00:41→18:33)
[2017-08-21] MEDS: LACTATED RINGERS 1,000 ML IV SCH (04:45)
[2017-08-21 05:29] LABS: BASOPHILS % (AUTO) 0.3 %; EOSINOPHILS # (AUTO) 0.3 10^3/uL (0.0-0.7); EOSINOPHILS % (AUTO) 2.2 %; HGB - HEMOGLOBIN 12.2 g/dL (12.0-16.0); LYMPHOCYTES # (AUTO) 1.9 10^3/uL (1.5-3.5); LYMPHOCYTES % (AUTO) 13.9 %; MEAN CORPUSCULAR HEMOGLOBIN 29.6 pg (27.0-31.0); MEAN CORPUSCULAR HGB CONC 32.4 g/dL (32.0-36.0); MEAN CORPUSCULAR VOLUME 91.4 fL (81.0-99.0); MEAN PLATELET VOLUME 8.6 fL (7.9-10.8); MONOCYTES # (AUTO) 0.6 10^3/uL (0.0-1.0); MONOCYTES % (AUTO) 4.7 %; NEUTROPHILS # (AUTO) 10.6 10^3/uL (1.5-6.6); NEUTROPHILS % (AUTO) 78.9 %; PLT - PLATELET COUNT 413 10^3/uL (130-450); RED BLOOD COUNT 4.11 10^6/uL (4.20-5.40); RED CELL DISTRIBUTION WIDTH 14.4 % (12.0-15.0); WHITE BLOOD COUNT 13.4 x10^3/uL (4.8-10.8)
[2017-08-21 05:41] LABS: CALCIUM 8.2 mg/dL (8.5-10.3); CREATININE 0.6 mg/dL (0.4-1.0)
[2017-08-21] MEDS: PANTOPRAZOLE 40 MG VIAL IVP SCH (06:37)
[2017-08-21] MEDS: SODIUM CHLORIDE FLUSH 0.9% 10 ML SYRINGE IVP PRN (06:37)
--- NOTE | 2017-08-21 08:21 | PROVIDER PROGRESS NOTE ---
Subjective - General Admit Date: 08/19/17 Procedure Date: 08/19/17 (Day 2 Zosyn) Post Op Days: 2 Procedure Performed: Ex lap, drainage of retroperitoneal appendiceal abscess - Review of Systems Wound/Incisions: positive: Dressing dry and intact, No drainage Drain Type: J/P Drain Output Description: serosanguinous Approximate mls Output: 20 cc/8 hours General: positive: No symptoms Pulmonary: positive: No symptoms Cardiovascular: positive: No symptoms Gastrointestinal: positive: Nausea, Abdominal pain (well controlled with non narcotic analgesics), Flatus Genitourinary: positive: No symptoms Musculoskeletal: positive: No symptoms Skin: positive: No symptoms Psychiatric: positive: No symptoms - Other Other Information/Narrative: Feels better, no further vomiting since yesterday; minimal nausea, passing flatus, good pain control, starting to ambulate, notes urine output has markedly increased. Objective - Patient Data Reviewed Vital Signs: Yes Vital Signs: Vital Signs x48h Temp Pulse Resp BP BP Pulse Ox 08/21/17 07:29 36.6 C 89 18 134/60 H 93 08/21/17 01:42 14 08/21/17 00:35 36.4 C L 80 18 126/74 96 Weight: Weight 08/19/17 08/20/17 08/21/17 23:59 23:59 23:59 Weight (kg) 68.946 kg Intake & Output: Intake and Output Totals x24h 08/19/17 08/20/17 08/21/17 23:59 23:59 23:59 Intake Total 2367.5 3475 1485.917 Output Total 110 1505 1920 Balance 2257.5 1970 -434.083 - Lab Results Lab Results: 08/21/17 04:45 08/21/17 04:45 Other Lab Results: Lab Results x24hrs 08/21/17 08/21/17 Range/Units 04:45 04:45 WBC 13.4 H (4.8-10.8) x10^3/uL RBC 4.11 L (4.20-5.40) 10^6/uL Hgb 12.2 (12.0-16.0) g/dL Hct 37.6 (37.0-47.0) % MCV 91.4 (81.0-99.0) fL MCH 29.6 (27.0-31.0) pg MCHC 32.4 (32.0-36.0) g/dL RDW 14.4 (12.0-15.0) % Plt Count 413 (130-450) 10^3/uL MPV 8.6 (7.9-10.8) fL Neut # 10.6 H (1.5-6.6) 10^3/uL Lymph # 1.9 (1.5-3.5) 10^3/uL [place] # 0.6 (0.0-1.0) 10^3/uL Eos # 0.3 (0.0-0.7) 10^3/uL Baso # 0.0 (0.0-0.1) 10^3/uL Absolute Nucleated RBC 0.00 x10^3/uL Nucleated RBC % 0.0 /100WBC Sodium 137 (135-145) mmol/L Potassium 3.2 L (3.5-5.0) mmol/L Chloride 104 (101-111) mmol/L Carbon Dioxide 26 (21-32) mmol/L Anion Gap 7.0 (6-13) BUN 10 (6-20) mg/dL Creatinine 0.6 (0.4-1.0) mg/dL Estimated GFR (MDRD) 98 (>89) Glucose 89 (70-100) mg/dL Calcium 8.2 L (8.5-10.3) mg/dL peritoneal fluid cultures still pending. - Current Medications Current Medications: Current Medications Generic Name Dose Route Start Last Admin Trade Name Norbertq PRN Reason Stop Dose Admin Enoxaparin Sodium 40 mg 08/20/17 08:00 08/20/17 08:19 Lovenox SUBQ 40 mg DAILY TESSA Administration Acetaminophen 100 mls @ 400 mls/hr 08/19/17 18:00 08/21/17 06:25 Ofirmev IV Infused Q6H TESSA Infusion Piperacillin Sod/Tazobactam 100 mls @ 200 mls/hr 08/19/17 18:00 08/21/17 06: 42 Sod 3.375 gm/ Sodium Chloride IV 200 mls/hr Q6HR TESSA Administration Ketorolac Tromethamine 15 mg 08/19/17 23:55 08/21/17 06:08 Toradol Inj IVP 08/24/17 23:54 15 mg Q6H TESSA Administration Ondansetron HCl 4 mg 08/19/17 17:59 08/19/17 19:21 Zofran Inj IVP 4 mg Q6H PRN Administration Nausea / Vomiting Pantoprazole Sodium 40 mg 08/20/17 18:00 08/21/17 06:37 Protonix IVP 40 mg QDAC TESSA Administration Combigan 0.2%/0.5% 1 each 08/20/17 09:00 08/20/17 21:32 EACHEYE 1 each BID TESSA Administration Restasis 0.5% 1 each 08/20/17 09:00 08/20/17 21:38 EACHEYE 1 each BID TESSA Administration Latanoprost 0.005% 1 each 08/20/17 10:37 08/20/17 21:45 EACHEYE 1 each QPM TESSA Administration Prochlorperazine Edisylate 10 mg 08/19/17 20:10 08/20/17 11:20 Compazine Inj IVP 10 mg Q4HR PRN Administration Nausea / Vomiting Sodium Chloride 10 ml 08/20/17 01:00 08/21/17 00:34 Normal Saline Flush 0.9% IVP 10 ml 0100,0900,1700 TESSA Administration Sodium Chloride 10 ml 08/19/17 17:59 08/21/17 06:37 Normal Saline Flush 0.9% IVP 10 ml PRN PRN Administration NEEDED PER PROVIDER ORDERS - Physical Exam Wound/Incisions: positive: Dressing dry and intact, No drainage General Appearance: positive: No acute distress, Alert Eyes Bilateral: positive: Normal inspection, Conjunctivae nml, No scleral icterus ENT: positive: ENT inspection nml, Pharynx nml, No signs of dehydration Neck: positive: No JVD Respiratory: positive: Chest non-tender, No respiratory distress, Rhonchi ( clear with cough) Cardiovascular: positive: Regular rate & rhythm, No murmur, No gallop Abdomen: positive: Tenderness (mild, expected incisional), Abnml bowel sounds ( hyperactive bowel sounds, no rushes or tympanitic sounds). negative: Guarding, Rebound Skin: positive: Color nml, No rash, Warm, Dry. negative: Cyanosis, Diaphoresis Extremities: positive: Non-tender, No pedal edema. negative: Calf tenderness Neurologic/Psychiatric: positive: Oriented x3 Impression/Plan - Problem List Problem List: PO Day 2 s/p open drainage of appendiceal abscess. Doing well with no fever, decreasing WBC count, increased urine output, good pain control with non narcotic analgesics. PONV appears to be improving as well. She has hypokalemia, possibly due to vomiting, will replace. PLan: replace K, increase activity, clear liq diet as tolerated, ow continue present management.
[2017-08-21] MEDS ORDERED: D5.45NS W/20 MEQ KCL 1,000 ML IV SCH ×3 (09:00→16:41)
[2017-08-21] MEDS: RESTASIS EACHEYE SCH ×2 (09:08→20:46)
[2017-08-21] MEDS: COMBIGAN EACHEYE SCH ×2 (09:08→20:45)
[2017-08-21] MEDS: ENOXAPARIN 40 MG/0.4 ML SYRINGE SUBQ SCH (09:09)
[2017-08-21] MEDS: POTASSIUM CHLORIDE 20 MEQ TABLET PO SCH ×2 (17:58→22:40)
[2017-08-21] MEDS: LATANOPROST 0.005% EACHEYE SCH (20:47)
[2017-08-22] MEDS: ACETAMINOPHEN 1,000 MG/100 ML 100 ML IV SCH ×2 (00:22→05:46)
[2017-08-22] MEDS: KETOROLAC 15 MG/ML VIAL IVP SCH ×2 (00:23→05:45)
[2017-08-22] MEDS: SODIUM CHLORIDE FLUSH 0.9% 10 ML SYRINGE IVP SCH ×4 (00:23→17:41)
[2017-08-22] MEDS: PIPERACILLIN/TAZOBACTAM 3.375 GM in SODIUM CHLORIDE 0.9% MINIBAG 100 ML IV SCH ×4 (00:49→17:09)
[2017-08-22 05:34] LABS: BASOPHILS # (AUTO) 0.1 10^3/uL (0.0-0.1); BASOPHILS % (AUTO) 0.9 %; EOSINOPHILS # (AUTO) 0.4 10^3/uL (0.0-0.7); EOSINOPHILS % (AUTO) 4.6 %; HGB - HEMOGLOBIN 12.9 g/dL (12.0-16.0); LYMPHOCYTES # (AUTO) 1.7 10^3/uL (1.5-3.5); LYMPHOCYTES % (AUTO) 19.3 %; MEAN CORPUSCULAR HEMOGLOBIN 29.8 pg (27.0-31.0); MEAN CORPUSCULAR HGB CONC 32.6 g/dL (32.0-36.0); MEAN CORPUSCULAR VOLUME 91.3 fL (81.0-99.0); MEAN PLATELET VOLUME 8.3 fL (7.9-10.8); MONOCYTES # (AUTO) 0.6 10^3/uL (0.0-1.0); MONOCYTES % (AUTO) 6.8 %; NEUTROPHILS % (AUTO) 68.4 %; PLT - PLATELET COUNT 418 10^3/uL (130-450); RED BLOOD COUNT 4.34 10^6/uL (4.20-5.40); RED CELL DISTRIBUTION WIDTH 14.9 % (12.0-15.0); WHITE BLOOD COUNT 8.7 x10^3/uL (4.8-10.8)
[2017-08-22 05:41] LABS: ALBUMIN 2.7 g/dL (3.2-5.5); ALBUMIN/GLOBULIN RATIO 0.8 (1.0-2.2); BILIRUBIN,TOTAL 0.4 mg/dL (0.2-1.0); CALCIUM 8.3 mg/dL (8.5-10.3); CREATININE 0.5 mg/dL (0.4-1.0)
[2017-08-22] MEDS: SODIUM CHLORIDE FLUSH 0.9% 10 ML SYRINGE IVP PRN (05:45)
[2017-08-22] MEDS: PANTOPRAZOLE 40 MG VIAL IVP SCH (05:45)
[2017-08-22] MEDS: POTASSIUM CHLORIDE 20 MEQ TABLET PO SCH ×2 (05:47→13:38)
[2017-08-22] MEDS: ENOXAPARIN 40 MG/0.4 ML SYRINGE SUBQ SCH (09:36)
[2017-08-22] MEDS: COMBIGAN EACHEYE SCH ×2 (09:57→21:29)
[2017-08-22] MEDS: RESTASIS EACHEYE SCH ×2 (09:58→21:29)
--- NOTE | 2017-08-22 10:27 | PROVIDER PROGRESS NOTE ---
Subjective - General Admit Date: 08/19/17 Procedure Date: 08/19/17 (Day 3 Zosyn) Post Op Days: 3 Procedure Performed: Ex lap, drainage of retroperitoneal appendiceal abscess - Review of Systems Wound/Incisions: positive: Dressing dry and intact, No drainage Drain Type: J/P Drain Output Description: serosanguinous Approximate mls Output: 120 cc/24 hrs General: positive: No symptoms Pulmonary: positive: No symptoms Cardiovascular: positive: No symptoms Gastrointestinal: positive: No symptoms, Abdominal pain (well controlled with non narcotic analgesics), Flatus, Diarrhea (loose stools since last night) Genitourinary: positive: No symptoms Musculoskeletal: positive: No symptoms Skin: positive: No symptoms Psychiatric: positive: No symptoms All Other Systems: positive: Reviewed and negative Objective - Patient Data Reviewed Vital Signs: Yes Vital Signs: afebrile; nl vs Intake & Output: Intake and Output Totals x24h 08/20/17 08/21/17 08/22/17 23:59 23:59 23:59 Intake Total 3475 4267.270 800 Output Total 1505 5765 490 Balance 1970 -1497.730 310 - Lab Results Lab Results: 08/22/17 04:55 08/22/17 04:55 Other Lab Results: Lab Results x24hrs 08/22/17 08/22/17 Range/Units 04:55 04:55 WBC 8.7 (4.8-10.8) x10^3/uL RBC 4.34 (4.20-5.40) 10^6/uL Hgb 12.9 (12.0-16.0) g/dL Hct 39.7 (37.0-47.0) % MCV 91.3 (81.0-99.0) fL MCH 29.8 (27.0-31.0) pg MCHC 32.6 (32.0-36.0) g/dL RDW 14.9 (12.0-15.0) % Plt Count 418 (130-450) 10^3/uL MPV 8.3 (7.9-10.8) fL Neut # 6.0 (1.5-6.6) 10^3/uL Lymph # 1.7 (1.5-3.5) 10^3/uL [place] # 0.6 (0.0-1.0) 10^3/uL Eos # 0.4 (0.0-0.7) 10^3/uL Baso # 0.1 (0.0-0.1) 10^3/uL Absolute Nucleated RBC 0.01 x10^3/uL Nucleated RBC % 0.1 /100WBC Sodium 140 (135-145) mmol/L Potassium 3.1 L (3.5-5.0) mmol/L Chloride 107 (101-111) mmol/L Carbon Dioxide 25 (21-32) mmol/L Anion Gap 8.0 (6-13) BUN 5 L (6-20) mg/dL Creatinine 0.5 (0.4-1.0) mg/dL Estimated GFR (MDRD) 121 (>89) Glucose 99 (70-100) mg/dL Calcium 8.3 L (8.5-10.3) mg/dL Total Bilirubin 0.4 (0.2-1.0) mg/dL AST 17 (10-42) IU/L ALT 19 (10-60) IU/L Alkaline Phosphatase 59 (42-121) IU/L Total Protein 6.0 L (6.7-8.2) g/dL Albumin 2.7 L (3.2-5.5) g/dL Globulin 3.3 (2.1-4.2) g/dL Albumin/Globulin Ratio 0.8 L (1.0-2.2) abscess C&S still pending - Current Medications Current Medications: Current Medications Generic Name Dose Route Start Last Admin Trade Name Freq PRN Reason Stop Dose Admin Enoxaparin Sodium 40 mg 08/20/17 08:00 08/22/17 09:36 Lovenox SUBQ 40 mg DAILY TESSA Administration Piperacillin Sod/Tazobactam 100 mls @ 200 mls/hr 08/19/17 18:00 08/22/17 06: 56 Sod 3.375 gm/ Sodium Chloride IV Infused Q6HR TESSA Infusion Ondansetron HCl 4 mg 08/19/17 17:59 08/19/17 19:21 Zofran Inj IVP 4 mg Q6H PRN Administration Nausea / Vomiting Combigan 0.2%/0.5% 1 each 08/20/17 09:00 08/22/17 09:57 EACHEYE 1 each BID TESSA Administration Restasis 0.5% 1 each 08/20/17 09:00 08/22/17 09:58 EACHEYE 1 each BID TESSA Administration Latanoprost 0.005% 1 each 08/20/17 10:37 08/21/17 20:47 EACHEYE 1 each QPM TESSA Administration Potassium Chloride 20 meq 08/21/17 17:00 08/22/17 05:47 K-Dur PO 20 meq TID TESSA Administration Prochlorperazine Edisylate 10 mg 08/19/17 20:10 08/20/17 11:20 Compazine Inj IVP 10 mg Q4HR PRN Administration Nausea / Vomiting Sodium Chloride 10 ml 08/20/17 01:00 08/22/17 10:01 Normal Saline Flush 0.9% IVP 10 ml 0100,0900,1700 TESSA Administration Sodium Chloride 10 ml 08/19/17 17:59 08/22/17 05:45 Normal Saline Flush 0.9% IVP 10 ml PRN PRN Administration NEEDED PER PROVIDER ORDERS - Physical Exam Wound/Incisions: positive: Dressing dry and intact General Appearance: positive: No acute distress, Alert Eyes Bilateral: positive: Normal inspection ENT: positive: ENT inspection nml, Pharynx nml, No signs of dehydration Neck: positive: No JVD Respiratory: positive: Chest non-tender, No respiratory distress, Breath sounds nml Cardiovascular: positive: Regular rate & rhythm, No murmur, No gallop Abdomen: positive: Nml bowel sounds, Tenderness (minimal, expected postop tenderness). negative: No distention (moderate distention), Guarding, Rebound Skin: positive: Color nml, No rash, Warm, Dry. negative: Cyanosis Extremities: positive: Nml appearance, No pedal edema. negative: Calf tenderness Neurologic/Psychiatric: positive: Oriented x3 Impression/Plan - Problem List Problem List: 1. Doing well, PO Day 3 s/p open drainage of appendiceal abscess. Leukocytosis has resolved and bowel function is returning to normal. PLan: advance diet, change to po meds, home tomorrow if continues to do well. 2. Hypokalemia, likely due to past vomiting and now diarrhea. Will supplement PO.
[2017-08-22] MEDS: ACETAMINOPHEN 500 MG TABLET PO SCH ×2 (11:49→17:08)
[2017-08-22] MEDS: IBUPROFEN 400 MG TABLET PO SCH ×3 (11:49→21:28)
[2017-08-22] MEDS: POTASSIUM CHLORIDE 10 MEQ CAPSULE PO SCH ×2 (14:02→21:28)
[2017-08-22] MEDS: SACCHAROMYCES BOULARDII 250 MG CAPSULE PO SCH (18:20)
[2017-08-22] MEDS: LATANOPROST 0.005% EACHEYE SCH (21:29)
[2017-08-23] MEDS: ACETAMINOPHEN 500 MG TABLET PO SCH ×2 (00:04→06:00)
[2017-08-23] MEDS: PIPERACILLIN/TAZOBACTAM 3.375 GM in SODIUM CHLORIDE 0.9% MINIBAG 100 ML IV SCH ×2 (00:05→05:59)
[2017-08-23] MEDS: SODIUM CHLORIDE FLUSH 0.9% 10 ML SYRINGE IVP SCH ×2 (00:06→09:18)
[2017-08-23] MEDS: SODIUM CHLORIDE FLUSH 0.9% 10 ML SYRINGE IVP PRN ×3 (00:10→06:06)
[2017-08-23] MEDS: IBUPROFEN 400 MG TABLET PO SCH ×2 (04:50→09:19)
[2017-08-23 05:42] LABS: BASOPHILS # (AUTO) 0.1 10^3/uL (0.0-0.1); BASOPHILS % (AUTO) 0.9 %; EOSINOPHILS # (AUTO) 0.6 10^3/uL (0.0-0.7); HGB - HEMOGLOBIN 13.3 g/dL (12.0-16.0); LYMPHOCYTES % (AUTO) 26.6 %; MEAN CORPUSCULAR HEMOGLOBIN 29.4 pg (27.0-31.0); MEAN CORPUSCULAR HGB CONC 31.8 g/dL (32.0-36.0); MEAN CORPUSCULAR VOLUME 92.5 fL (81.0-99.0); MEAN PLATELET VOLUME 7.9 fL (7.9-10.8); MONOCYTES # (AUTO) 0.5 10^3/uL (0.0-1.0); MONOCYTES % (AUTO) 6.4 %; NEUTROPHILS # (AUTO) 4.4 10^3/uL (1.5-6.6); NEUTROPHILS % (AUTO) 58.1 %; PLT - PLATELET COUNT 461 10^3/uL (130-450); RED BLOOD COUNT 4.53 10^6/uL (4.20-5.40); RED CELL DISTRIBUTION WIDTH 14.9 % (12.0-15.0); WHITE BLOOD COUNT 7.5 x10^3/uL (4.8-10.8)
[2017-08-23 05:49] LABS: CALCIUM 8.9 mg/dL (8.5-10.3); CREATININE 0.5 mg/dL (0.4-1.0)
[2017-08-23] MEDS: POTASSIUM CHLORIDE 10 MEQ CAPSULE PO SCH (06:00)
[2017-08-23] MEDS ORDERED: PANTOPRAZOLE 40 MG TABLET PO SCH (07:00)
[2017-08-23] MEDS: RESTASIS EACHEYE SCH (09:15)
[2017-08-23] MEDS: COMBIGAN EACHEYE SCH (09:15)
[2017-08-23] MEDS: ENOXAPARIN 40 MG/0.4 ML SYRINGE SUBQ SCH (09:18)
[2017-08-23] MEDS: SACCHAROMYCES BOULARDII 250 MG CAPSULE PO SCH (09:18)
--- NOTE | 2017-08-23 09:27 | PROVIDER PROGRESS NOTE ---
Subjective - General Admit Date: 08/19/17 Procedure Date: 08/19/17 (Day 4 Zosyn) Post Op Days: 4 Procedure Performed: Ex lap, drainage of retroperitoneal appendiceal abscess - Review of Systems Wound/Incisions: positive: Dressing dry and intact Drain Type: J/P Drain Output Description: serosanguinous Approximate mls Output: 90 cc/24 hrs General: positive: No symptoms Pulmonary: positive: No symptoms Cardiovascular: positive: No symptoms Gastrointestinal: positive: No symptoms, Abdominal pain (well controlled with non narcotic analgesics), Flatus, Diarrhea (multiple loose and semiformed stools ; no melena, BRBPR or watery diarrhea.). negative: Nausea, Vomiting, Difficulty swallowing, Constipation, Melena, Hematochezia Genitourinary: positive: No symptoms Musculoskeletal: positive: No symptoms Skin: positive: No symptoms Psychiatric: positive: No symptoms All Other Systems: positive: Reviewed and negative Objective - Patient Data Reviewed Vital Signs: Yes Vital Signs: Vital Signs x48h Temp Pulse Resp BP Pulse Ox 08/23/17 07:56 36.2 C L 103 H 18 138/78 H 97 Intake & Output: Intake and Output Totals x24h 08/21/17 08/22/17 08/23/17 23:59 23:59 23:59 Intake Total 4267.270 2038.647 740 Output Total 5765 540 20 Balance -4105.069 9923.647 720 - Lab Results Lab Results: 08/23/17 05:15 08/23/17 05:15 Other Lab Results: Lab Results x24hrs 08/23/17 08/23/17 Range/Units 05:15 05:15 WBC 7.5 (4.8-10.8) x10^3/uL RBC 4.53 (4.20-5.40) 10^6/uL Hgb 13.3 (12.0-16.0) g/dL Hct 41.9 (37.0-47.0) % MCV 92.5 (81.0-99.0) fL MCH 29.4 (27.0-31.0) pg MCHC 31.8 L (32.0-36.0) g/dL RDW 14.9 (12.0-15.0) % Plt Count 461 H (130-450) 10^3/uL MPV 7.9 (7.9-10.8) fL Neut # 4.4 (1.5-6.6) 10^3/uL Lymph # 2.0 (1.5-3.5) 10^3/uL [place] # 0.5 (0.0-1.0) 10^3/uL Eos # 0.6 (0.0-0.7) 10^3/uL Baso # 0.1 (0.0-0.1) 10^3/uL Absolute Nucleated RBC 0.00 x10^3/uL Nucleated RBC % 0.0 /100WBC Sodium 140 (135-145) mmol/L Potassium 3.6 (3.5-5.0) mmol/L Chloride 107 (101-111) mmol/L Carbon Dioxide 25 (21-32) mmol/L Anion Gap 8.0 (6-13) BUN 5 L (6-20) mg/dL Creatinine 0.5 (0.4-1.0) mg/dL Estimated GFR (MDRD) 121 (>89) Glucose 94 (70-100) mg/dL Calcium 8.9 (8.5-10.3) mg/dL peritoneal fluid C&S: NG at 48 hours. - Current Medications Current Medications: Current Medications Generic Name Dose Route Start Last Admin Trade Name Freq PRN Reason Stop Dose Admin Acetaminophen 1,000 mg 08/22/17 12:00 08/23/17 06:00 Tylenol PO 1,000 mg Q6H TESSA Administration Enoxaparin Sodium 40 mg 08/20/17 08:00 08/23/17 09:18 Lovenox SUBQ 40 mg DAILY TESSA Administration Piperacillin Sod/Tazobactam 100 mls @ 200 mls/hr 08/19/17 18:00 08/23/17 06: 29 Sod 3.375 gm/ Sodium Chloride IV Infused Q6HR TESSA Infusion Ibuprofen 400 mg 08/22/17 10:00 08/23/17 09:19 Motrin PO Not Given Q6H TESSA Ondansetron HCl 4 mg 08/19/17 17:59 08/19/17 19:21 Zofran Inj IVP 4 mg Q6H PRN Administration Nausea / Vomiting Pantoprazole Sodium 40 mg 08/23/17 07:00 08/23/17 06:00 Protonix PO 40 mg QDAC TESSA Administration Combigan 0.2%/0.5% 1 each 08/20/17 09:00 08/23/17 09:15 EACHEYE 1 each BID TESSA Administration Restasis 0.5% 1 each 08/20/17 09:00 08/23/17 09:15 EACHEYE 1 each BID TESSA Administration Latanoprost 0.005% 1 each 08/20/17 10:37 08/22/17 21:29 EACHEYE 1 each QPM TESSA Administration Potassium Chloride 20 meq 08/22/17 14:00 08/23/17 06:00 Micro-K PO 20 meq TID TESSA Administration Prochlorperazine Edisylate 10 mg 08/19/17 20:10 08/20/17 11:20 Compazine Inj IVP 10 mg Q4HR PRN Administration Nausea / Vomiting Saccharomyces Boulardii 250 mg 08/22/17 18:00 08/23/17 09:18 Florastor PO 250 mg BIDWM TESSA Administration Sodium Chloride 10 ml 08/20/17 01:00 08/23/17 09:18 Normal Saline Flush 0.9% IVP 10 ml 0100,0900,1700 TESSA Administration Sodium Chloride 10 ml 08/19/17 17:59 08/23/17 06:06 Normal Saline Flush 0.9% IVP 10 ml PRN PRN Administration NEEDED PER PROVIDER ORDERS - Physical Exam Wound/Incisions: positive: Healing well (delayed primary closure performed at bedside.), Dressing dry and intact, No drainage. negative: Erythema General Appearance: positive: No acute distress, Alert Eyes Bilateral: positive: Normal inspection ENT: positive: ENT inspection nml Neck: positive: Nml inspection, No JVD Respiratory: positive: Chest non-tender, No respiratory distress, Breath sounds nml. negative: Wheezes, Rales, Rhonchi Cardiovascular: positive: Regular rate & rhythm, No murmur, No gallop Abdomen: positive: Non-tender, Nml bowel sounds, No distention. negative: Guarding, Rebound, Hepatomegaly, Splenomegaly, Mass Skin: positive: Color nml, No rash, Warm, Dry. negative: Cyanosis Extremities: positive: Non-tender, Nml appearance, No pedal edema. negative: Calf tenderness Neurologic/Psychiatric: positive: Oriented x3 Impression/Plan - Problem List Problem List: 1.PO Day 4 s/p drainage of appendiceal abscess; doing well. Plan d/c home today with 3 more days of antibiotic therapy (Augmentin 876 BID).RTO 4 days; precautions given. 2. Hypokalemia, resolved. Will stop potassium supplementation. 3. Loose stools, likely due to resolving ileus and/or antibiotic therapy; C. Diff infection should be considered. Will obtain stool for C. Diff toxin prior to d/c.
[2017-08-23] MEDS ORDERED: ACETAMINOPHEN 500 MG TABLET PO PRN (09:37)
[2017-08-23] MEDS ORDERED: IBUPROFEN 400 MG TABLET PO PRN (09:37)
--- NOTE | 2017-08-23 10:02 | Discharge Plan ---
Discharge Plan Disposition: Home, Self Care Condition: Good Prescriptions: Acetaminophen [Tylenol] 650 mg PO Q6H PRN #30 tab PRN Reason: Pain Amox/Clav 875/125 [Augmentin] 1 each PO Q12H #6 tablet Saccharomyces Boulardii [Florastor] 250 mg PO BID #30 capsule Diet: Regular (avoid raw vegetables and nuts) Activity Restrictions: ambulate daily; no lifting more than 10 lbs Shower Restrictions: Yes (keep dressings and incision dry) Driving Restrictions: Yes (no driving for one week) Instruction Topics: Appendx Surg Additional Instructions or Follow Up instructions: Follow up with Dr. Khan in his office on SaturdayAugust 27; call [phone] for an appointment if you don't already have one. Call for fever, nausea/vomiting, worsening pain. No Smoking: If you smoke, Please STOP! Call for help. Follow-up with: Richa Hernandez PA-C [Primary Care Provider] -
--- NOTE | 2017-08-23 10:15 | DISCHARGE SUMMARY ---
"Discharge Summary Admit Date: 08/20/17 Discharge Date: 08/23/17 Discharging Provider: Dr. Lizandro Khan Primary Care Provider: Dr. Richa Hernandez Code Status: Attempt Resuscitation Condition at Discharge: Good Discharge Disposition: Home, Self Care Discharge Facility Name: [facility] - DIAGNOSES Admission Diagnoses: Perforated appendicitis with retroperitoneal abscess. Discharge Diagnoses with Status of Each Condition: Same, resolving. - HPI History of Present Illness: See admission H&P/surgical consultation. - CONSULTS | PROCEDURES Consultations: General Surgery Procedures: Open drainage of retroperitoneal appendiceal abscess. - HOSPITAL COURSE Hospital Course: Patient was taken to the OR on the evening of admission where open drainage of a retroperitoneal abscess thought due to perforated appendicitis was performed. Postoperatively the patient was treated with Zosyn, her gi tract function gradually returned towards normal, her diet was advanced as tolerated, her pain became well controlled with non narcotic analgesics, her leukocytosis resolved, she remained afebrile. Her midline wound was healing well and underwent delayed primary closure on the day of discharge. Her J/P drain in the abscess cavity was draining serosanguinous fluid at a diminishing rate and was removed on the day of discharge. At discharge, on PO Day 4, she was afebrile, with stable vital signs, ambulating well, have multiple loose bm's, tolerating a full liquid diet well. Abscess cultures showed no growth, thought not to be digital media representative of the actual infection that was present. She will take 3 days of Augmentin following discharge, continue a probiotic started in the hospital, and f/u in my office in 4 days. She was noted to be hypokalemic postop and this was treated with parenteral and oral potassium supplementation with resolution of the condition at discharge. Because of multiple loose stools, a C. difficile stool toxin assay was ordered on the day of discharge and the results will be communicated with her when available. - ALLERGIES Allergies/Adverse Reactions: Allergies Allergy/AdvReac Type Severity Reaction Status Date / Time No Known Drug Allergies Allergy Verified 08/19/17 13:51 - MEDICATIONS Home Medications: Ambulatory Orders Medication Instructions Recorded Confirmed Aspirin [Aspir 81] 1 tab PO DAILY 09/03/14 08/20/17 Latanoprost 0.005% Ophth Drops 1 drops EACHEYE BID 09/03/14 08/20/17 [Xalatan Ophth Drops] Omeprazole 20 mg PO DAILY 09/03/14 08/20/17 Brimonidine Tartrate/Timolol 1 drops EACHEYE BID 08/20/17 08/20/17 [Combigan 0.2%-0.5% Eye Drops] Cholecalciferol (Vitamin D3) 1,000 unit PO DAILY 08/20/17 08/20/17 [Vitamin D3] Cyclosporine [Restasis] 1 each EACHEYE BID 08/20/17 08/20/17 Fluticasone [Flonase] 2 sprays MARLIN DAILY 08/20/17 08/20/17 Acetaminophen [Tylenol] 650 mg PO Q6H PRN #30 tab 08/23/17 Amox/Clav 875/125 [Augmentin] 1 each PO Q12H #6 tablet 08/23/17 Ibuprofen [Motrin] 400 mg PO Q6H PRN tablet 08/23/17 Saccharomyces Boulardii [Florastor] 250 mg PO BID #30 capsule 08/23/17 - PHYSICAL EXAM AT DISCHARGE General Appearance: positive: No acute distress, Alert Eyes Bilateral: positive: Normal inspection ENT: positive: ENT inspection nml, Pharynx nml, No signs of dehydration Neck: positive: No JVD Respiratory: positive: Chest non-tender, No respiratory distress, Breath sounds nml. negative: Wheezes, Rales, Rhonchi Cardiovascular: positive: Regular rate & rhythm, No murmur, No gallop Abdomen: positive: Non-tender, No organomegaly, Nml bowel sounds, No distention , Tenderness (minimal incisional tenderness; incision healing well; DPC performed at bedside.) Skin: positive: Color nml, No rash, Warm, Dry Extremities: positive: No pedal edema. negative: Calf tenderness Neurologic/Psychiatric: positive: Oriented x3 - LABS Result Diagrams: 08/23/17 05:15 08/23/17 05:15 - FOLLOW UP Follow Up: With Dr. Khan in 4 days. - TIME SPENT Time Spent in Discharge (Minutes): 45"
[2017-08-23 10:32] VITALS: BP 123/65
== END 2017-08-23 10:50 | disposition home or self-care (01) | DRG 373 ==
LOC: ED 13:34 → SDS 16:15 → MS2 17:59
PROVIDERS: ADMIT Internal Medicine Gastroenterology; ATTEND Internal Medicine Gastroenterology
PROC: 0W9G00Z Drainage of Peritoneal Cavity with Drainage Device, Open Approach (ICD-10-PCS; principal; 2017-08-19 16:00)
PROC: 0HQ7XZZ Repair Abdomen Skin, External Approach (ICD-10-PCS; 2017-08-23)
DX: K57.80 Diverticulitis of intestine, part unspecified, with perforation and abscess without bleeding (principal); K21.9 Gastro-esophageal reflux disease without esophagitis; Z79.82 Long term (current) use of aspirin; K35.3 Acute appendicitis with localized peritonitis; E87.6 Hypokalemia
CPT/HCPCS: 36415; 74177; 80048; 80053; 81001; 81003; 83690; 85025; 85651; 86140; 87070; 87075; 87076; 87086; 87116; 87205; 87206; 87493; 96365; 96368; 96375; 99283; 99284

== ENCOUNTER 2018-03-11 08:05 | Outpatient (CLI) | payer MEDICARE, OTHER ==
[2018-03-11 13:33] LABS: BASOPHILS % (AUTO) 0.8 %; EOSINOPHILS # (AUTO) 0.3 10^3/uL (0.0-0.7); EOSINOPHILS % (AUTO) 6.3 %; HGB - HEMOGLOBIN 14.3 g/dL (12.0-16.0); LYMPHOCYTES # (AUTO) 1.7 10^3/uL (1.5-3.5); MEAN CORPUSCULAR HEMOGLOBIN 33.2 pg (27.0-31.0); MEAN CORPUSCULAR VOLUME 97.4 fL (81.0-99.0); MEAN PLATELET VOLUME 9.5 fL (7.9-10.8); MONOCYTES # (AUTO) 0.3 10^3/uL (0.0-1.0); MONOCYTES % (AUTO) 6.9 %; NEUTROPHILS # (AUTO) 2.5 10^3/uL (1.5-6.6); PLT - PLATELET COUNT 191 10^3/uL (130-450); RED BLOOD COUNT 4.31 10^6/uL (4.20-5.40); RED CELL DISTRIBUTION WIDTH 13.7 % (12.0-15.0)
[2018-03-11 14:09] LABS: ALBUMIN/GLOBULIN RATIO 1.3 (1.0-2.2); ALKALINE PHOSPHATASE 60 IU/L (42-121); ALT ALANINE AMINOTRANSFERASE 15 IU/L (10-60); AST ASPARTATE AMINOTRANSFERASE 18 IU/L (10-42); BILIRUBIN,TOTAL 1.1 mg/dL (0.2-1.0); BUN - BLOOD UREA NITROGEN 16 mg/dL (6-20); CALCIUM 9.1 mg/dL (8.5-10.3); CARBON DIOXIDE - CO2 29 mmol/L (21-32); CHLORIDE 106 mmol/L (101-111); CREATININE 0.6 mg/dL (0.4-1.0); GFR - MDRD 98 (>89); GLUCOSE 100 mg/dL (70-100); SODIUM 139 mmol/L (135-145); VLDL CHOLESTEROL 34 mg/dL
[2018-03-11 14:10] LABS: CHOL/HDL RATIO 3.8 (<4.4); CHOLESTEROL 249 mg/dL; HDL CHOLESTEROL 66 mg/dL; LDL CHOLESTEROL,CALCULATED 149 mg/dL; LDL/HDL RATIO 2.3 (<4.4)
[2018-03-12 15:21] LABS: HEPATITIS C ANTIBODY NON-REACTIVE (NON-REACTIVE)
== END 2018-03-11 08:06 | disposition home or self-care (01) ==
LOC: LAB.F 08:05
PROVIDERS: ATTEND Physician Assistant Medical
DX: M81.0 Age-related osteoporosis without current pathological fracture (principal); E55.9 Vitamin D deficiency, unspecified; Z79.899 Other long term (current) drug therapy; E78.2 Mixed hyperlipidemia; Z13.818 Encounter for screening for other digestive system disorders
CPT/HCPCS: 36415; 80053; 80061; 82306; 83721; 85025; 86803

== ENCOUNTER 2018-03-20 08:00 | Outpatient (CLI) | payer MEDICARE, OTHER ==
[2018-03-22 15:47] LABS: ANA SCREEN NEGATIVE (NEGATIVE)
== END 2018-03-20 23:59 | disposition home or self-care (01) ==
LOC: LAB.R 08:00
PROVIDERS: ATTEND Physician Assistant Medical
DX: H04.123 Dry eye syndrome of bilateral lacrimal glands (principal)
CPT/HCPCS: 86038

== ENCOUNTER 2018-03-28 09:52 | Outpatient (CLI) | payer MEDICARE, OTHER ==
--- NOTE | 2018-03-31 09:27 | DEXA Report ---
Reason: POSTMENOPAUSAL Procedure Date: 03/28/2018 Accession Number: [id number] / [id number] Procedure: DEX - Dexa Spine and/or Hip CPT Code: FULL RESULT: EXAM: Dexa Spine and/or Hip DATE: 03/28/2018 10:38 AM CLINICAL HISTORY: POSTMENOPAUSAL TECHNIQUE: Dual energy x-ray absorptiometry (DXA) was performed on a [employer] System. Regions measured are the AP Spine, femoral neck, and if needed forearm. COMPARISON: 01/06/2016. In accordance with the International Society for Clinical Densitometry (ISCD) guidelines, data from previous exams may be reanalyzed using current recommendations and techniques. This is done to allow a more accurate basis for comparison with the current study. FINDINGS: The data for the lumbar spine is as follows: BMD (g/cm/cm) T-SCORE Z-SCORE REGION L1 0.731 -3.3 -1.7 L2 0.874 -2.7 -1.1 L3 1.213 0.1 1.8 L4 1.027 -1.4 0.2 TOTAL 0.966 -1.8 -0.1 NOTE: All evaluable vertebrae are used for classification The data for the hip is as follows: BMD (g/cm/cm) T-SCORE Z-SCORE REGION Neck 0.680 -2.6 -0.8 TOTAL 0.646 -2.9 -1.3 NOTE: The femoral neck or total proximal femur, whichever is lowest, is used for classification. DXA RESULTS SUMMARY: Spine SCAN DATE [age] BMD CHANGE VS CHANGE VS PREVIOUS PREVIOUS % 2/28/2018 [age] 0[age]966 -0.116* -10.7* 01/06/2016 [age] 1[age]082 * Denotes significant change at the 95% confidence level. Denotes dissimilar scan types or analysis methods. DXA RESULTS SUMMARY: Hip SCAN DATE [age]GE BMD CHANGE VS CHANGE VS PREVIOUS PREVIOUS % [birth year]28[birth year]2018 [age] 0.646 -0.043* -6.2* [birth year]27[birth year]2015 [age] 0.689 * Denotes significant change at the 95% confidence level. Denotes dissimilar scan types or analysis methods. IMPRESSION: THE WHO CLASSIFICATION BASED ON THE INTERNATIONAL REFERENCE STANDARD IS OSTEOPOROSIS. THE FRACTURE RISK IS HIGH. RECOMMENDATION: Patients with diagnosis of osteoporosis or osteopenia should have regular bone mineral density assessment. For those eligible for Medicare, routine testing is allowed once every 2 years. Testing frequency can be increased for patients who have rapidly progressing disease or for those who are receiving medical therapy to restore bone mass. COMMENT: World Health Organization (WHO) definitions for osteoporosis and osteopenia: NORMAL BMD: T-score at -1.0 or higher, fracture risk is low OSTEOPENIA BMD: T-score between -1.0 and -2.5, fracture risk is increased. OSTEOPOROSIS BMD: T-score at -2.5 or lower, fracture risk is high. National Osteoporosis Foundation recommends: 1. Obtain adequate dietary calcium (at least 1200 mg per day) and vitamin D (400-800 international units per day). 2. Participate, as appropriate, in regular weightbearing and muscle-strengthening exercise. 3. Avoid tobacco use and reduce alcohol and caffeine intake. 4. For more detailed information see the website at www.NOF.org.
== END 2018-03-28 09:53 | disposition home or self-care (01) ==
LOC: DI 09:52
PROVIDERS: ATTEND Physician Assistant Medical
DX: M81.0 Age-related osteoporosis without current pathological fracture (principal)
CPT/HCPCS: 77080

== ENCOUNTER 2021-01-16 11:47 | Outpatient (CLI) | payer MEDICARE, OTHER ==
--- NOTE | 2021-01-16 12:37 | CT Report ---
PROCEDURE: Abdomen/Pelvis WO INDICATIONS: INCISIONAL HERNIA CONTRAST: 100 mL TECHNIQUE: After the administration of 100 mL contrast, 5 mm thick sections acquired from the diaphragms to the symphysis. 5 mm thick coronal and sagittal reformats were acquired. For radiation dose reduction, t willa following was used: automated exposure control, adjustment of mA and/or kV according to patient s ize. COMPARISON: 08/19/2017 FINDINGS: Image quality: Excellent. ABDOMEN: Lung bases: There is a 1.2 x 0.8 cm nodule in the right costophrenic angle anteriorly. A calcified 3 mm granuloma is also seen peripherally and laterally on the right. Lung bases are clear. Heart size is normal. Solid organs: Liver: The liver has no mass or intrahepatic biliary ductal dilatation. [] Biliary: The gallbladder has no gallstones, pericholecystic fluid, gallbladder wall thickening, or hedrick rrounding inflammatory change.[] Pancreas: The pancreas has no mass or ductal dilatation. No surrounding inflammation.[] Spleen: Normal size. No mass.[] Adrenal glands: No hypertrophy or nodules.[] Kidneys: No obstructive calculus or hydronephrosis. No solid mass. No cystic mass.[] Bowel: The distal esophagus and stomach are normal. The small bowel has a normal caliber and appearan ce. The terminal ileum is normal. The large bowel has a normal caliber and appearance.[] What appear s to be a normal appendix is seen. Free air/free fluid: No free air or free fluid.[] Abdominal wall: Fat-containing ventral hernia.[] Retroperitoneum: No retroperitoneal or mesenteric adenopathy by size criteria. Aorta and inferior terrie a cava are normal in size.[] Lymph nodes: No adenopathy.[] Bones: No suspicious bony lesions. No vertebral body compression fractures.[] PELVIS: Genitourinary: [Bladder wall thickness is normal. ][] Miscellaneous: [No inguinal hernias or adenopathy. ]There is a ventral periumbilical hernia with a 4 cm defect. Bones: [No suspicious bony lesions. No vertebral body compression fractures. ]Multilevel degenerat dioni changes. IMPRESSION: 1. No acute abnormality of the abdomen. 2. Diverticulosis without evidence of diverticulitis. 3. The CT on 08/19/2017 demonstrated possible appendicitis, however the current CT demonstrates what a ppears to be a normal-appearing appendix. 4. Ventral periumbilical hernia demonstrating a 4 cm defect containing fat Reviewed by: Lalo Nelson on 01/16/2021 12:35 PM PDT Approved by: Lalo Nelson on 01/16/2021 12:35 PM PDT Station ID: [id number]
== END 2021-01-16 11:48 | disposition home or self-care (01) ==
LOC: DI 11:47
PROVIDERS: ATTEND Surgery
DX: K43.2 Incisional hernia without obstruction or gangrene (principal)